=== PATIENT | female | born 1990 | race Caucasian/White ===

== ENCOUNTER 2017-11-12 08:12 | Emergency (ER) | payer OTHER ==
[~2017-11-12] VITALS: Ht 167.6 cm; Wt 84.4 kg
[2017-11-12] MEDS ORDERED: IBUPROFEN 800800 M1 PO (08:25)
[2017-11-12] MEDS ORDERED: PREDNISONE 20 M20 MG PO (08:26)
[2017-11-12] MEDS ORDERED: PENICILLIN V P500 MG PO (08:27)
[2017-11-12 09:48] VITALS: BP 151/96
== END 2017-11-12 09:48 | disposition home or self-care (01) ==
LOC: ER 08:12
DX: R46.1 Bizarre personal appearance (principal); F22 Delusional disorders

== ENCOUNTER 2019-07-04 17:53 | Emergency (ER) | payer OTHER ==
[~2019-07-04] VITALS: Ht 170.2 cm; Wt 89.8 kg
[~2019-07-04 17:53] MED LIST: IBUPROFEN 800800 M1 PO; PENICILLIN V P500 MG PO; PREDNISONE 20 M20 MG PO
[2019-07-04] MEDS ORDERED: NORCO 5-325 TA1 EAC1 PO (20:29)
[2019-07-04] MEDS ORDERED: CYCLOBENZAPRINE5 MG PO (20:29)
[2019-07-04 20:44] VITALS: BP 144/93
== END 2019-07-04 20:45 | disposition home or self-care (01) ==
LOC: ER 17:53
DX: M54.5 Low back pain (principal); M62.830 Muscle spasm of back; F17.210 Nicotine dependence, cigarettes, uncomplicated; Z79.899 Other long term (current) drug therapy